=== PATIENT | female | born 1960 | race African-American/Black ===

== ENCOUNTER 2016-04-17 10:06 | Outpatient (CLI) | payer OTHER ==
[2016-04-17 11:46] LABS: #Basophils 0.1 thou/uL (0.0-0.2); #Eosinphils 0.1 thou/uL (0.0-0.7); #Lymphocytes 1.6 thou/uL (1.20-3.40); #Monocytes 0.2 thou/uL (0.11-0.59); #Neutrophils 2.3 thou/uL (1.40-6.50); %Basophils 1.4 % (0.0-1.0); %Eosinophils 1.8 % (0.0-10.0); %Monocytes 4.7 % (0.0-10.0); Hematocrit 41.5 % (36.0-47.0); Mean Platelet Volume 6.7 fL (7.4-10.4); Red Blood Cell (RBC) Count 4.87 mill/uL (4.20-5.40); White Blood Cell (WBC) Count 4.2 thou/uL (4.8-10.8)
[2016-04-17 12:07] LABS: ALT (SGPT) 14 U/L (0-55); AST (SGOT) 16 U/L (5-34); Alkaline Phosphatase 99 U/L (40-150); Anion Gap 13 mmol/L (10-20); BUN (Urea Nitrogen) 10 mg/dL (9.8-20.1); Bilirubin, Total 1.1 mg/dL (0.2-1.2); Calc. Creatinine Clearance 0 mL/min (70-130); Calcium 9.6 mg/dL (7.8-10.44); Carbon Dioxide 31 mmol/L (22-29); Chloride 103 mmol/L (98-107); Estimated GFR-MDRD 87; Globulin 3.5 g/dL (2.4-3.5); LDL Cholesterol, Calculated 110 mg/dL; Protein, Total 7.8 g/dL (6.0-8.3)
== END 2016-04-17 10:07 | disposition home or self-care (01) ==
LOC: BURLAB 10:06
PROVIDERS: ATTEND Family Medicine
DX: I10 Essential (primary) hypertension (principal)
CPT/HCPCS: 36415; 80053; 80061; 84443; 85025

== ENCOUNTER 2017-06-05 22:43 | Emergency (ER) | payer OTHER ==
[2017-06-05] MEDS ORDERED: methylPREDNISolone Acetate 40 mg/ml Vial ONE (23:07)
== END 2017-06-05 23:25 | disposition home or self-care (01) ==
LOC: BURERS 22:43
DX: L73.9 Follicular disorder, unspecified (principal); I10 Essential (primary) hypertension; Z79.899 Other long term (current) drug therapy
CPT/HCPCS: 96372; J1030

== ENCOUNTER 2017-11-10 22:03 | Emergency (ER) | payer OTHER, SELFPAY ==
[2017-11-10] MEDS ORDERED: Nitroglycerin 0.4 MG TAB (25 Tab Bottle) ONE (22:17)
[2017-11-10 22:30] LABS: Hemoglobin 13.4 g/dL (12.0-16.0); Mean Corpuscular HGB CONC 34.3 g/dL (32.0-36.0); Mean Corpuscular Hemoglobin 25.7 pg (27.0-31.0); Platelet Count 298 thou/uL (130-400); Red Blood Cell (RBC) Count 5.21 mill/uL (4.20-5.40); White Blood Cell (WBC) Count 6.6 thou/uL (4.8-10.8)
[2017-11-10 22:37] LABS: ALT (SGPT) 12 U/L (8-55); AST (SGOT) 11 U/L (5-34); Albumin 4.3 g/dL (3.5-5.0); Alkaline Phosphatase 123 U/L (40-150); Anion Gap 14 mmol/L (10-20); BUN (Urea Nitrogen) 9 mg/dL (9.8-20.1); Bilirubin, Total 0.4 mg/dL (0.2-1.2); Calc. Creatinine Clearance 0 mL/min (70-130); Calcium 9.9 mg/dL (7.8-10.44); Carbon Dioxide 29 mmol/L (22-29); Chloride 102 mmol/L (98-107); Estimated GFR-MDRD 89; Globulin 3.6 g/dL (2.4-3.5); Glucose 105 mg/dL (70-105); Potassium 3.1 mmol/L (3.5-5.1); Protein, Total 7.9 g/dL (6.0-8.3); Sodium 142 mmol/L (136-145)
[2017-11-10 22:39] LABS: CKMB 0.5 ng/mL (0-6.6); Troponin I Less than 0.010 ng/mL (< 0.028)
[2017-11-10 22:44] LABS: Eosinophils 1 % (0-10); Lymphocytes 42 % (21-51); MDiff Complete? YES; Microcytosis SLIGHT = 6-15 cells (100X) (0-5/hpf); Monocytes 5 % (0-10); Neutrophil 52 % (42-75); PLT Morphology Comment Appears Adequate
[2017-11-10] MEDS ORDERED: Potassium Chloride 20 MEQ/100 ML PREMIX BAG ONE (22:47)
[2017-11-10] MEDS ORDERED: Potassium Chloride 20 MEQ TAB ONE (22:49)
--- NOTE | 2017-11-10 23:14 | RAD ---
PORTABLE CHEST: 11/10/17 An AP portable film at 2205 is compared with a 01/13/12 study. The heart size is unchanged. There is no vascular congestion, edema, or pleral effusion. The lungs ar e clear. The trachea is midline IMPRESSION: No acute thoracic findings. POS: HOME
== END 2017-11-10 23:10 | disposition home or self-care (01) ==
LOC: BURERS 22:03
DX: R07.2 Precordial pain (principal)
CPT/HCPCS: 71045; 80053; 82553; 84484; 85025; 85379; 93005; 96374; J3480

== ENCOUNTER 2018-11-29 09:04 | Outpatient (CLI) | payer OTHER ==
--- NOTE | 2018-12-05 13:17 | ULT ---
RIGHT UPPER QUADRANT ULTRASOUND: DATE: 11/29/2018. NOTE: This study was not presented to me to be read until 12/05/2018 due to a technical malfunction. FINDINGS: The liver was normal in size. There is a large hyperechoic mass present in the right lobe near the d ome measuring 5.7 x 4.7 x 3.9 cm. Statistically, it is most likely a hemangioma, however, a CT with a hemangioma protocol would be needed to further confirm this. A mass was seen here on an older CT sc an. There are no dilated intrahepatic ducts. The pancreas appears normal, though the tail was obscured by gas. The gallbladder contained several gallstones, including a large stone that seems to be lodged in the neck. There is no thickening of t he gallbladder wall. Some sludge was present. The common bile duct was a normal 5 mm wide. The right kidney measures 10.2 cm in length. There was slight prominence of the right renal pelvis, but the calyces themselves do not seem significantly dilated. Sometimes this could be normal or the result of reflux or a full bladder. IMPRESSION: 1. Multiple gallstones including a large stone lodged in the neck. Sludge present. No typical sign s of cholecystitis. 2. Large hyperechoic mass in the dome of the liver in the right lobe. Hyperechoic in nature, so gil y likely a hemangioma. Comparison with a 10/24/2008 CT of the thorax showed a 7+ cm mass was noted in this location at that time, further making it likely that this is a hemangioma. If one wished to do a dedicated hemangioma protocol CT, it might be even more confirmatory. 3. If one needs to assess the function of the gallbladder, then a HIDA scan could be helpful. POS: HOME
== END 2018-11-29 09:05 | disposition home or self-care (01) ==
LOC: BURULT 09:04
PROVIDERS: ATTEND Family Medicine
DX: R10.10 Upper abdominal pain, unspecified (principal); K80.20 Calculus of gallbladder without cholecystitis without obstruction; K82.8 Other specified diseases of gallbladder; R93.2 Abnormal findings on diagnostic imaging of liver and biliary tract
CPT/HCPCS: 76705

== ENCOUNTER 2019-06-16 14:55 | Emergency (ER) | payer SELFPAY ==
[2019-06-16] MEDS ORDERED: traMADol HCl 50 MG TAB ONE (15:13)
[2019-06-16] MEDS ORDERED: Dicyclomine 20 MG TAB ONE (15:14)
[2019-06-16] MEDS ORDERED: Ibuprofen 800 MG TAB ONE (15:16)
[2019-06-16 15:43] LABS: ALT (SGPT) 18 U/L (8-55); AST (SGOT) 12 U/L (5-34); Albumin 4.2 g/dL (3.5-5.0); Alkaline Phosphatase 110 U/L (40-110); Anion Gap 16 mmol/L (10-20); BUN (Urea Nitrogen) 8 mg/dL (9.8-20.1); Calc. Creatinine Clearance 0 mL/min (70-130); Calcium 9.3 mg/dL (7.8-10.44); Carbon Dioxide 27 mmol/L (22-29); Chloride 101 mmol/L (98-107); Estimated GFR-MDRD 81; Globulin 3.3 g/dL (2.4-3.5); Glucose 98 mg/dL (70-105); Lipase 25 U/L (8-78); Potassium 3.5 mmol/L (3.5-5.1); Protein, Total 7.5 g/dL (6.0-8.3); Sodium 140 mmol/L (136-145)
[2019-06-16 15:44] LABS: Hemoglobin 12.5 g/dL (12.0-16.0); Lymphocytes 26 % (21-51); MDiff Complete? YES; Mean Corpuscular HGB CONC 30.9 g/dL (32.0-36.0); Mean Corpuscular Hemoglobin 25.7 pg (27.0-31.0); Mean Corpuscular Volume 83.2 fL (78.0-98.0); Mean Platelet Volume 7.3 fL (7.4-10.4); Monocytes 8 % (0-10); Neutrophil 66 % (42-75); Platelet Count 278 thou/uL (130-400); RBC Distribution Width 12.9 % (11.5-14.5); Red Blood Cell (RBC) Count 4.88 mill/uL (4.20-5.40); White Blood Cell (WBC) Count 6.7 thou/uL (4.8-10.8)
[2019-06-16 16:07] LABS: Bilirubin Small (Negative); Blood, Urine Negative (Negative); Clarity Slightly Cloudy (Clear); Glucose, Urine (Dipstick) Negative (Negative); Leukocyte Negative (Negative); Nitrite Negative (Negative); Protein, Urine (Dipstick) Negative (Neg-Trace); Urobilinogen 0.2 mg/dL (Less than 2)
== END 2019-06-16 16:22 | disposition home or self-care (01) ==
LOC: BURERS 14:55
DX: K80.50 Calculus of bile duct without cholangitis or cholecystitis without obstruction (principal); R71.8 Other abnormality of red blood cells; I10 Essential (primary) hypertension; Z79.899 Other long term (current) drug therapy
CPT/HCPCS: 80053; 81003; 83690; 85025; 99284

== ENCOUNTER 2020-05-03 17:36 | Emergency (ER) | payer SELFPAY | END 2020-05-03 17:58 | disposition home or self-care (01) | LOC: BURERS 17:36 | DX: S61.201A Unspecified open wound of left index finger without damage to nail, initial encounter (principal); W26.8XXA Contact with other sharp object(s), not elsewhere classified, initial encounter; Z79.899 Other long term (current) drug therapy | CPT/HCPCS: 99282 ==